=== PATIENT | female | born 1985 | race Caucasian/White ===

== ENCOUNTER 2018-10-14 13:01 | Emergency (ER) | payer BC ==
[2018-10-14] MEDS ORDERED: HYDROCODONE/APAP 5/325 MG TAB ONE (13:30)
[2018-10-14] MEDS ORDERED: KETOROLAC 30 MG/ML INJ ONE (13:30)
--- NOTE | 2018-10-14 14:14 | RAD REPORT ---
EXAM DESCRIPTION: RAD - Shoulder Right 2 View - 10/14/2018 2:08 pm CLINICAL HISTORY: Right shoulder pain FINDINGS: No fracture or dislocation is seen. No bone or joint abnormality
--- NOTE | 2018-10-14 14:39 | ER ---
Nurse's Notes [facility] Name: Vaishali Martinez Age: 33 yrs Sex: Female : 1985 Arrival Date: 10/14/2018 Time: 13:04 Bed 23 Private MD: Diagnosis: Pain in right shoulder Presentation: 10/14 13:03 Presenting complaint: Patient states: yesterday i hurt my R shoulder on one of the bottom on the counter at home, reports pain on 09/17;. Transition of care: patient was not received from another setting of care. Onset of symptoms was October 14, 2018. Risk Assessment: Do you want to hurt yourself or someone else? Patient reports no desire to harm self or others. Initial Sepsis Screen: Does the patient meet any 2 criteria? No. Patient's initial sepsis screen is negative. Does the patient have a suspected source of infection? No. Patient's initial sepsis screen is negative. Care prior to arrival: None. 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 - Ebola Screening: : Patient denies travel to an Ebola-affected area in the 21 days before illness onset. Screenin:34 Abuse screen: Denies threats or abuse. Denies injuries from another. Nutritional aj1 screening: No deficits noted. Tuberculosis screening: No symptoms or risk factors identified. 14:49 Fall Risk None identified. aj1 Assessment: 13:34 General: Appears in no apparent distress. comfortable, Behavior is calm, cooperative, aj1 appropriate for age. Pain: Complains of pain in anterior aspect of right shoulder and posterior aspect of right shoulder. Neuro: Level of Consciousness is awake, alert, obeys commands, Oriented to person, place, time, situation. Cardiovascular: Patient's skin is warm and dry. Respiratory: Airway is patent Respiratory effort is even, unlabored, Respiratory pattern is regular, symmetrical. GI: No signs and/or symptoms were reported involving the gastrointestinal system. : No signs and/or symptoms were reported regarding the genitourinary system. EENT: No signs and/or symptoms were reported regarding the EENT system. Derm: Skin is pink, warm \T\ dry. normal. Musculoskeletal: Range of motion: limited in right shoulder. 14:19 Reassessment: Patient appears in no apparent distress at this time. No changes from aj1 previously documented assessment. Patient and/or family updated on plan of care and expected duration. Pain level reassessed. Patient is alert, oriented x 3, equal unlabored respirations, skin warm/dry/pink. Vital Signs: 13:05 BP 153 / 79; Pulse 102; Resp 18; Temp 98.0(O); Pulse Ox 100% on R/A; Weight 65.77 kg; hj Height 5 ft. 8 in. (172.72 cm); Pain 7/10; 13:05 Body Mass Index 22.05 (65.77 kg, 172.72 cm) ED Course: 13:04 Patient arrived in ED. as 13:04 Triage completed. hj 13:05 Arm band placed on right wrist. hj 13:08 Kip Alcazar NP is PHCP. pm1 13:08 Yonis Rm MD is Attending Physician. pm1 13:14 Daylin Harper, RN is Primary Nurse. aj1 13:34 Patient has correct armband on for positive identification. Bed in low position. Call aj1 light in reach. 13:34 No provider procedures requiring assistance completed. aj1 14:06 Shoulder Right (2 View) XRAY In Process Unspecified. EDMS 14:48 Patient did not have IV access during this emergency room visit. aj1 14:49 Sling applied to right arm. aj1 Administered Medications: 13:33 Drug: TORadol 60 mg Route: IM; Site: left gluteus; aj1 Outcome: 14:38 Discharge ordered by MD. pm1 14:48 Discharged to home ambulatory. aj1 14:48 Condition: good 14:48 Discharge instructions given to patient, Instructed on discharge instructions, follow up and referral plans. no drinking with medication, no driving heavy equipment, medication usage, Demonstrated understanding of instructions, follow-up care, medications, Prescriptions given X 1. 14:49 Patient left the ED. aj1 Signatures: Dispatcher [employer] EDCA Daylin Harper RN RN aj Radha Cain Henry, RN RN Kip Alcazar NP MANAGER GLOBAL pm1 Corrections: (The following items were deleted from the chart) 13:07 13:05 Pulse 102bpm; Resp 18bpm; Pulse Ox 100% RA; Temp 98.0F Oral; 65.77 kg; Height 5 hj ft. 8 in.; BMI: 22.0; Pain 7/10; hj 13:32 13:32 Hollister 5 mg-325 mg 1 tabs PO aj1 aj1
--- NOTE | 2018-10-14 14:39 | EDPHYS ---
Physician Documentation [facility] Name: Vaishali Martinez Age: 33 yrs Sex: Female : 1985 Arrival Date: 10/14/2018 Time: 13:04 Bed 23 Private MD: ED Physician Yonis Rm HPI: 10/14 13:15 This 33 yrs old Female presents to ER via Ambulatory with complaints of pm1 Shoulder Pain. 13:15 The patient or guardian complains of pain. right shoulder. Context: The problem was pm1 sustained at home, resulted from hitting right shoulder against the bottom of counter yesterday and hitting right shoulder against the bottom of table today, The patient reports no obvious deformity. Patient with grinding sounds with rotation of right shoulder and pain with attempts to extend arm above the height of her shoulder. Onset: The symptoms/episode began/occurred yesterday. Modifying factors: the symptoms are alleviated by remaining still, The symptoms are aggravated by movement, rotation of arm. Associated signs and symptoms: Pertinent negatives: chest pain, Numbness in right arm shortness of breath, tingling. Severity of symptoms: in the emergency department the symptoms are unchanged. Treatment prior to arrival includes: no previous treatment. The patient has not experienced similar symptoms in the past. 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 - Ebola Screening: : Patient denies travel to an Ebola-affected area in the 21 days before illness onset. ROS: 14:29 Constitutional: Negative for fever, chills, and weight loss, Cardiovascular: Negative pm1 for chest pain, palpitations, and edema, Respiratory: Negative for shortness of breath, cough, wheezing, and pleuritic chest pain, Abdomen/GI: Negative for abdominal pain, nausea, vomiting, diarrhea, and constipation, Back: Negative for injury and pain. 14:29 Skin: Negative for injury, rash, and discoloration, Neuro: Negative for headache, weakness, numbness, tingling, and seizure. 14:29 MS/extremity: Positive for pain, of the right shoulder, Decreased ROM due to pain, Negative for deformity. Exam: 14:29 Constitutional: This is a well developed, well nourished patient who is awake, alert, pm1 and in no acute distress. Head/Face: Normocephalic, atraumatic. Neck: Trachea midline, no thyromegaly or masses palpated, and no cervical lymphadenopathy. Supple, full range of motion without nuchal rigidity, or vertebral point tenderness. No Meningismus. Chest/axilla: Normal chest wall appearance and motion. Nontender with no deformity. No lesions are appreciated. Cardiovascular: Regular rate and rhythm with a normal S1 and S2. No gallops, murmurs, or rubs. Normal PMI, no JVD. No pulse deficits. Respiratory: Lungs have equal breath sounds bilaterally, clear to auscultation and percussion. No rales, rhonchi or wheezes noted. No increased work of breathing, no retractions or nasal flaring. Abdomen/GI: Soft, non-tender, with normal bowel sounds. No distension or tympany. No guarding or rebound. No evidence of tenderness throughout. Back: No spinal tenderness. No costovertebral tenderness. Full range of motion. Skin: Warm, dry with normal turgor. Normal color with no rashes, no lesions, and no evidence of cellulitis. 14:29 Musculoskeletal/extremity: Extremities: grossly normal except: noted in the anterior aspect of right shoulder, supraspinatus insertion point tenderness: There is no evidence of deformity, Circulation is intact in all extremities. the right hand Sensation intact. 14:29 Neuro: Orientation: is normal, Motor: is normal, moves all fours, Sensation: is normal, no obvious gross deficits. Vital Signs: 13:05 BP 153 / 79; Pulse 102; Resp 18; Temp 98.0(O); Pulse Ox 100% on R/A; Weight 65.77 kg; hj Height 5 ft. 8 in. (172.72 cm); Pain 7/10; 13:05 Body Mass Index 22.05 (65.77 kg, 172.72 cm) hj MDM: 13:08 Patient medically screened. pm1 14:37 Data reviewed: vital signs. Data interpreted: Pulse oximetry: on room air is 100 %. pm1 Interpretation: normal. Counseling: I had a detailed discussion with the patient and/or guardian regarding: the historical points, exam findings, and any diagnostic results supporting the discharge/admit diagnosis, radiology results, the need for outpatient follow up, for definitive care, a orthopedic surgeon, to return to the emergency department if symptoms worsen or persist or if there are any questions or concerns that arise at home. 10/14 13:15 Order name: Shoulder Right (2 View) XRAY; Complete Time: 14:29 pm1 10/14 13:15 Order name: Sling; Complete Time: 13:32 pm1 Administered Medications: 13:33 Drug: TORadol 60 mg Route: IM; Site: left gluteus; aj1 Disposition: 10/15 07:13 Co-signature as Attending Physician, Yonis Rm MD I agree with the assessment and kira plan of care. Disposition: 10/14/18 14:38 Discharged to Home. Impression: Pain in right shoulder. - Condition is Stable. - Discharge Instructions: Shoulder Pain, How to Use a Sling. - Prescriptions for Tylenol- Codeine #3 300-30 mg Oral Tablet - take 2 tablets by ORAL route every 6 hours As needed; 20 tablet. - Medication Reconciliation Form, Thank You Letter, Antibiotic Education, Prescription Opioid Use form. - Follow up: Emergency Department; When: As needed; Reason: Worsening of condition. Follow up: Private Physician; When: 2 - 3 days; Reason: Recheck today's complaints, Continuance of care, Re-evaluation by your physician. - Problem is new. - Symptoms have improved. Signatures: Dispatcher [employer] EDDaylin Covarrubias RN RN aj1 Yonis Rm MD MD cha Joaquin, Henry, RN RN hj Marinas, Patrick, NP CONVENTIONS ASSISTANT pm1 Corrections: (The following items were deleted from the chart) 10/14 14:49 14:38 10/14/2018 14:38 Discharged to Home. Impression: Pain in right shoulder. aj1 Condition is Stable. Forms are Medication Reconciliation Form, Thank You Letter, Antibiotic Education, Prescription Opioid Use. Follow up: Emergency Department; When: As needed; Reason: Worsening of condition. Follow up: Private Physician; When: 2 - 3 days; Reason: Recheck today's complaints, Continuance of care, Re-evaluation by your physician. Problem is new. Symptoms have improved. pm1
== END 2018-10-14 14:49 | disposition home or self-care (01) ==
LOC: ER 13:01
DX: M25.511 Pain in right shoulder (principal)
CPT/HCPCS: 96372; 99284

== ENCOUNTER 2020-05-03 08:43 | Emergency (ER) | payer BC ==
--- OUTSIDE RECORDS SUMMARY | 2020-05-03 08:46 | XMS REPORT | Continuity of Care Document ---
:1985 Author Organization [facility] t Address [address] [place] [address] Care Team Providers Name Role Phone Joel Padilla DO Primary Care Physician Joel Padilla DO Attending Clinician Nikhil FRAZIER Attending Clinician Unavailable Angel MARC, L Attending Clinician Payers Payer Name Policy Type Policy Number Effective Date Expiration Date S brad [facility] [id number] 2015 [place] BENEFIT 00:00:00 [employer] [id number] 03/2015-Present PPO Problems Condition Condition Condition Status Onset Resolution Last Treating Co mments Source Name Details Category Date Date Treatment Clinician Date Attention Attention Disease Active Anthony ston or or 12-07 [facility] concentrat concentrat 00:00: st ion ion 00 deficit deficit Allergies, Adverse Reactions, Alerts Allergy Allergy Status Severity Reaction(s) Onset Inactive Treating Comm ents Source Name Type Date Date Clinician No Known DA Active U 2019-0 [facility] [place] No Known DA Active U [facility] [place] Penicill DA Active U 2010-03 [facility] ins 2-14 [facility] [place] Family History Family Member Diagnosis Comments Start Date Stop Date Source Natural mother Hypertension Fredrick Muro Paternal grandfather Leukemia [place] Muro Social History Social Habit Start Date Stop Date Quantity Comments Source Sex Assigned At [facility] ethodist Tobacco use and 2019-12-25 2019-12-25 Never used [facility] ethodist exposure 00:00:00 00:00:00 Alcohol intake 2019-12-25 2019-12-25 Current drinker Neetu britt [employer] 00:00:00 00:00:00 of alcohol (finding) Smoking Status Start Date Stop Date Source Never smoker [place] [facility] Medications Ordered Filled Start Stop Current Ordering Indication Dosage Frequency Signature Comments Components Source Medication Medication Date Date Medication? Clinician (SIG) Name Name dextroamphe 2020- Yes 20mg Q.5D Take 1 Anthony ston tamine-amph 2-19 03-21 tablet (20 M ethodi etamine 00:00: 23:59 mg total) st (AdderalL) 00 :00 by mouth 2 20 mg (two) tablet times a day for 30 days. Max Daily Amount: 40 mg dextroamphe 2020- No 20mg Q.5D Take 1 Anthony ston tamine-amph 2-18 02-19 tablet (20 M ethodi etamine 00:00: 00:00 mg total) st (AdderalL) 00 :00 by mouth 2 20 mg (two) tablet times a day for 30 days. Max Daily Amount: 40 mg dextroamphe 2020- No 20mg Q.5D Take 1 Anthony ston tamine-amph 1-15 02-14 tablet (20 M ethodi etamine 00:00: 23:59 mg total) st (AdderalL) 00 :00 by mouth 2 20 mg (two) tablet times a day for 30 days. Max Daily Amount: 40 mg dextroamphe 2019-03- No 20mg Q.5D Take 1 Anthony ston tamine-amph 2-15 01-15 tablet (20 M ethodi etamine 00:00: 00:00 mg total) st (AdderalL) 00 :00 by mouth 2 20 mg (two) tablet times a day for 30 days. Max Daily Amount: 40 mg dextroamphe 2019-03- No 20mg Q.5D Take 1 Anthony ston tamine-amph 1-16 12-15 tablet (20 M ethodi etamine 00:00: 00:00 mg total) st (AdderalL) 00 :00 by mouth 2 20 mg (two) tablet times a day for 30 days. Max Daily Amount: 40 mg dextroamphe 2019-03 20mg Q.5D Take 1 Anthony ston tamine-amph 01-24 tablet (20 M ethodi etamine 00:00: 00:00 mg total) st (AdderalL) 00 :00 by mouth 2 20 mg (two) tablet times a day for 30 days. Max Daily Amount: 40 mg Vital Signs Vital Name Observation Time Observation Value Comments Source Body temperature 2019-12-25 10:24:00 36.11 Silvia Sveta lyons [employer] Body weight 2019-12-25 10:24:00 86.637 kg [place] [employer] BMI 2019-12-25 10:24:00 29.04 kg/m2 [place] [employer] Procedures This patient has no known procedures. Plan of Care Planned Activity Planned Date Details Comments Source Future Scheduled 2019-10-10 INFLUENZA VACCINE [place] [facility] Test 00:00:00 [code = INFLUENZA VACCINE] Future Scheduled 2006 Screening for [facility] thodist Test 00:00:00 malignant neoplasm of cervix (procedure) [code = 618753103] Future Scheduled 2001 COVID-19 VACCINE (1 [place] [facility] Test 00:00:00 of 2) [code = COVID-19 VACCINE (1 of 2)] Encounters Start End Encounter Admission Attending Care Care Encounter Source Date/Time Date/Time Type Type Clinicians Facility Department ID 2019-12-25 2019-12-25 Outpatient [facility] [id number] [place] 00:00:00 00:00:00 JUAN [address] 2018-11-05 2018-11-05 Office [facility] [id number] 15:42:41 16:17:25 Visit [facility] [id number] Surgical [id number] Specialti [id number] [address] [place] Results Test Description Test Time Test Comments Results Result Comments Source HGB HCT 2019-06-09 07:28:00 Test Item Value Reference Range Interpretation Comme nts HEMOGLOBIN (test code = HGB) 10.4 g/dL 10.7-13.9 L HEMATOCRIT (test code = HCT) 31.9 % 32.1-42.1 L COMPREHENSIVE METABOLIC [id number] 12:18:00 Test Item Value Reference Range Interpretation Comments SODIUM (test code = NA) 140 mEq/L 135-145 N POTASSIUM (test code = 4.9 mEq/L 3.5-5.0 N K) CHLORIDE (test code = 107 mEq/L 100-115 N CL) CARBON DIOXIDE (test 26 mEq/L 22-31 N code = CO2) ANION GAP (test code = 12.30 10-20 N GAP) GLUCOSE (test code = 127 mg/dL 65-110 H GLU) BLOOD UREA NITROGEN 6 mg/dL 7-18 L (test code = BUN) GLOMERULAR FILTRATION 114 ml/min >60 N RATE (test code = GFR) CREATININE (test code = 0.6 mg/dL 0.5-1.0 N CREAT) TOTAL PROTEIN (test 6.2 gm/dL 6.3-8.2 L code = PROT) ALBUMIN (test code = 2.5 gm/dL 3.4-4.8 L ALB) CALCIUM (test code = 8.8 mg/dL 8.4-10.2 N CA) BILIRUBIN TOTAL (test 0.3 mg/dL 0.2-1.0 N code = BILT) SGOT/AST (test code = 24 units/L 15-37 Result s verified by AST) repeat analysis SGPT/ALT (test code = 14 units/L 12-78 N ALT) ALKALINE PHOSPHATASE 127 units/L 46-116 H TOTAL (test code = ALKP) URIC [id number] 12:18:00 Test Item Value Reference Range Interpretation Comments URIC ACID (test code = URIC) 3.5 mg/dL 2.6-6.0 N LACTIC DEHYDROGENASE(LDH)2019-06-07 12:18:00 Test Item Value Reference Range Interpretation Comments LACTIC DEHYDROGENASE(LDH) (test 411 units/L 81-234 H code = LDH) CBC W/AUTO [id number] 10:31:00 Test Item Value Reference Range Interpretation Comments WHITE BLOOD CELL (test code = WBC) 14.9 K/mm3 6.6-12.1 H RED BLOOD CELL (test code = RBC) 4.21 M/mm3 3.45-5.01 N HEMOGLOBIN (test code = HGB) 12.9 g/dL 10.7-13.9 N HEMATOCRIT (test code = HCT) 39.4 % 32.1-42.1 N MEAN CELL VOLUME (test code = MCV) 94 fL 84.1-94.8 N MEAN CELL HGB (test code = MCH) 30.6 pg 27-35 N MEAN CELL HGB CONCETRATION (test 32.7 gm/dL 32.2-34.1 N code = MCHC) RED CELL DISTRIBUTION WIDTH (test 13.9 % 12.4-16.5 N code = RDW) PLATELET COUNT (test code = PLT) 238 K/mm3 133-385 N MEAN PLATELET VOLUME (test code = 10.5 fl 9.1-12.7 N MPV) NEUTROPHIL % (test code = NT%) 79.9 % 56.5-79.4 H LYMPHOCYTE % (test code = LY%) 12.1 % 14.3-34.3 L MONOCYTE % (test code = MO%) 6.4 % 5.1-10.4 N EOSINOPHIL % (test code = EO%) 0.4 % 0.1-3.0 N BASOPHIL % (test code = BA%) 0.3 % 0.1-1.0 N NEUTROPHIL # (test code = NT#) 11.9 K/mm3 LYMPHOCYTE # (test code = LY#) 1.8 K/mm3 MONOCYTE # (test code = MO#) 1.0 K/mm3 EOSINOPHIL # (test code = EO#) 0.06 K/mm3 BASOPHIL # (test code = BA#) 0.1 K/mm3 RBC MORPHOLOGY REQUIRED (test code NORMAL NORMAL = RBCM) PLATELET MORPHOLOGY REQUIRED (test NORMAL NORMAL code = PLTMR) AG HEPATITIS B [id number] 19:34:00 Test Item Value Reference Range Interpretation Comments AG HEPATITIS B SURFACE (test code NONREACTIVE NONREACTIVE = HBSAG) IS CONSENT FORM SIGNED FOR HIV TESTING? YAB HEPATITIS C [id number] 19:34:00 Test Item Value Reference Range Interpretation Comments AB HEPATITIS C (test code = NONREACTIVE NONREACTIVE HCVAB) SIGNAL TO CUTOFF (test code = 0.22 <0.80 N CUTOFF) IS CONSENT FORM SIGNED FOR HIV TESTING? YAB [id number] 19:34:00 Test Item Value Reference Range Interpretation Comments AB TREPONEMA (test code = TREPAB) NONREACTIVE NONREACTIVE IS CONSENT FORM SIGNED FOR HIV TESTING? YAB HIV 1 19:34:00 Test Item Value Reference Range Interpretation Comments AB HIV 1 2 (test NONREACTIVE NONREACTIVE Done by Enzo Markham code = [id number]) 4th Gen HIV Ag/Ab Combo Screen IS CONSENT FORM SIGNED FOR HIV TESTING? YAG HEPATITIS B [id number] 19:11:00 Test Item Value Reference Range Interpretation Comments AG HEPATITIS B SURFACE (test code NONREACTIVE NONREACTIVE = HBSAG) IS CONSENT FORM SIGNED FOR HIV TESTING? YAB HEPATITIS C [id number] 19:11:00 Test Item Value Reference Range Interpretation Comments AB HEPATITIS C (test code = HCVAB) NONREACTIVE SIGNAL TO CUTOFF (test code = CUTOFF) <0.80 IS CONSENT FORM SIGNED FOR HIV TESTING? YAB [id number] 19:11:00 Test Item Value Reference Range Interpretation Comments AB TREPONEMA (test code = TREPAB) NONREACTIVE NONREACTIVE IS CONSENT FORM SIGNED FOR HIV TESTING? YAB HIV 1 19:11:00 Test Item Value Reference Range Interpretation Comments AB HIV 1 2 (test code = [id number]) NONREACTIVE IS CONSENT FORM SIGNED FOR HIV TESTING? [id number] 14:47:00 Test Item Value Reference Range Interpretation Comments CREATININE (test code = CREAT) 0.7 mg/dL 0.5-1.0 N [id number] 14:47:00 Test Item Value Reference Range Interpretation Comments SGOT/AST (test code = AST) 14 units/L 15-37 L [id number] 14:47:00 Test Item Value Reference Range Interpretation Comments SGPT/ALT (test code = ALT) 19 units/L 12-78 N CBC W/AUTO [id number] 14:16:00 Test Item Value Reference Range Interpretation Comments WHITE BLOOD CELL (test code = WBC) 14.1 K/mm3 6.6-12.1 H RED BLOOD CELL (test code = RBC) 4.27 M/mm3 3.45-5.01 N HEMOGLOBIN (test code = HGB) 13.2 g/dL 10.7-13.9 N HEMATOCRIT (test code = HCT) 39.6 % 32.1-42.1 N MEAN CELL VOLUME (test code = MCV) 93 fL 84.1-94.8 N MEAN CELL HGB (test code = MCH) 30.9 pg 27-35 N MEAN CELL HGB CONCETRATION (test 33.3 gm/dL 32.2-34.1 N code = MCHC) RED CELL DISTRIBUTION WIDTH (test 13.8 % 12.4-16.5 N code = RDW) PLATELET COUNT (test code = PLT) 244 K/mm3 133-385 N MEAN PLATELET VOLUME (test code = 11.1 fl 9.1-12.7 N MPV) NEUTROPHIL % (test code = NT%) 78.8 % 56.5-79.4 N LYMPHOCYTE % (test code = LY%) 11.9 % 14.3-34.3 L MONOCYTE % (test code = MO%) 7.4 % 5.1-10.4 N EOSINOPHIL % (test code = EO%) 0.5 % 0.1-3.0 N BASOPHIL % (test code = BA%) 0.4 % 0.1-1.0 N NEUTROPHIL # (test code = NT#) 11.1 K/mm3 LYMPHOCYTE # (test code = LY#) 1.7 K/mm3 MONOCYTE # (test code = MO#) 1.1 K/mm3 EOSINOPHIL # (test code = EO#) 0.07 K/mm3 BASOPHIL # (test code = BA#) 0.1 K/mm3 RBC MORPHOLOGY REQUIRED (test code NORMAL NORMAL = RBCM) PLATELET MORPHOLOGY REQUIRED (test NORMAL NORMAL code = PLTMR)
--- OUTSIDE RECORDS SUMMARY | 2020-05-03 08:46 | XMS REPORT | Clinical Summary ---
:1985 Author Organization [facility] Address [address] [place] [address] Care Team Providers Name Role Phone Roxy Padilla DO Primary Care Provider Allergies No Known Active Allergies Medications Medication Sig Dispensed Refills Start Date End Date Status dextroamphetamin Take 1 60 tablet 0 04/29/2020 05/29/2020 A ctive e-amphetamine tablet (20 (AdderalL) 20 mg mg total) by tablet mouth 2 (two) times a day for 30 days. Max Daily Amount: 40 mg dextroamphetamin Take 1 60 tablet 0 12/25/2019 2020 D iscontinued e-amphetamine tablet (20 (Reor justyna) (AdderalL) 20 mg mg total) by tablet mouth 2 (two) times a day for 30 days. Max Daily Amount: 40 mg dextroamphetamin Take 1 60 tablet 0 2020 02/23/2020 D iscontinued e-amphetamine tablet (20 (Reor justyna) (AdderalL) 20 mg mg total) by tablet mouth 2 (two) times a day for 30 days. Max Daily Amount: 40 mg dextroamphetamin Take 1 60 tablet 0 02/23/2020 03/25/2020 D iscontinued e-amphetamine tablet (20 (Reor justyna) (AdderalL) 20 mg mg total) by tablet mouth 2 (two) times a day for 30 days. Max Daily Amount: 40 mg dextroamphetamin Take 1 60 tablet 0 03/25/2020 04/24/2020 E xpired e-amphetamine tablet (20 (AdderalL) 20 mg mg total) by tablet mouth 2 (two) times a day for 30 days. Max Daily Amount: 40 mg dextroamphetamin Take 1 60 tablet 0 04/28/2020 04/29/2020 D iscontinued e-amphetamine tablet (20 (Reor justyna) (AdderalL) 20 mg mg total) by tablet mouth 2 (two) times a day for 30 days. Max Daily Amount: 40 mg Active Problems Problem Noted Date Attention or concentration deficit 12/08/2015 Encounters Date Type Specialty Care Team Description 04/29/2020 Orders Only Family Medicine Roxy Padilla, DO 04/28/2020 Telephone Family Medicine Suzi Tejeda MA 04/28/2020 Orders Only Family Medicine Roxy Padilla, DO 03/25/2020 Orders Only Family Medicine Roxy Padilla, DO 02/23/2020 Orders Only Family Medicine Roxy Padilla, DO 2020 Orders Only Family Medicine Roxy Padilla, DO 01/21/2020 Refill Family Medicine Roxy Padilla, DO 12/25/2019 Telemedicine Family Medicine Roxy Padilla Attention deficit disorder E., DO (ADD) without h yperactivity (Primary Dx) 12/24/2019 Travel after 05/03/2019 Surgical History Surgery Date Site/Laterality Comments TONSILLECTOMY Medical History Medical History Date Comments ADHD (attention deficit hyperactivity disorder) Family History Medical History Relation Name Comments Hypertension Mother Leukemia Paternal Grandfather Relation Name Status Comments Mother Paternal Grandfather Social History Tobacco Use Types Packs/Day Years Used Date Never Smoker Smokeless Tobacco: Never Used Alcohol Use Drinks/Week oz/Week Comments Yes Sex Assigned at Date Recorded Not on file Last Filed Vital Signs Vital Sign Reading Time Taken Comments Blood Pressure - - Pulse - - Temperature 36.1 C (97 F) 12/25/2019 10:24 AM CDT Respiratory Rate - - Oxygen Saturation - - Inhaled Oxygen Concentration - - Weight 86.6 kg (191 lb) 12/25/2019 10:24 AM CDT Height - - Body Mass Index 29.04 10/24/2017 11:31 AM CDT Plan of Treatment Health Maintenance Due Date Last Done Comments COVID-19 VACCINE (1 of 2) 2001 CERVICAL CANCER SCREENING 2006 INFLUENZA VACCINE 10/10/2019 HEPATITIS C SCREENING Completed 09/21/2015 Results Not on fileafter 05/03/2019
[2020-05-03] MEDS ORDERED: predniSONE 20 MG TAB ONE (09:36)
[2020-05-03] MEDS ORDERED: KETOROLAC 30 MG/ML INJ ONE (09:38)
[2020-05-03] MEDS ORDERED: DIAZEPAM 5 MG TABLET ONE (09:38)
--- NOTE | 2020-05-03 09:41 | RAD REPORT ---
EXAM DESCRIPTION: CTSpine Lumbar Wo Con05/03/2020 9:29 am CLINICAL HISTORY: Leg radiculopathy COMPARISON: None TECHNIQUE: Computed axial tomography lumbar spine was obtained with coronal and sagittal reconstruct ion. All CT scans are performed using dose optimization technique as appropriate and may include automated exposure control or mA/KV adjustment according to patient size. FINDINGS: No fracture is seen. No dislocation is noted. Small left posterior-lateral disc herniation suspected L4-5 No high-grade stenosis visualized IMPRESSION: Small left posterolateral disc herniation suspected L4-5. Nonemergent MRI recommended
--- NOTE | 2020-05-03 10:43 | ER ---
Nurse's Notes [facility] Name: Vaishali Martinez Age: 35 yrs Sex: Female : 1985 Arrival Date: 05/03/2020 Time: 08:45 Bed 16 Private MD: Diagnosis: Low back pain-herniated disc Presentation: 05/03 08:59 Chief complaint: Patient states: Low back pain that radiates down both legs that began ss 1-2 days ago. No known injury. Coronavirus screen: Client denies travel out of the [place] in the last 14 days. Ebola Screen: Patient denies exposure to infectious person. Patient denies travel to an Ebola-affected area in the 21 days before illness onset. Initial Sepsis Screen: Does the patient meet any 2 criteria? HR > 90 bpm. Does the patient have a suspected source of infection? No. Patient's initial sepsis screen is negative. Risk Assessment: Do you want to hurt yourself or someone else? Patient reports no desire to harm self or others. Onset of symptoms was May 02, 2020. 08:59 Method Of Arrival: Ambulatory ss 08:59 Acuity: MADHAV 3 ss Historical: - Allergies: 09:02 No Known Allergies; ss - Home Meds: 09:02 Adderall XR 20 mg Oral cp24 twice a day [Active]; ss - PMHx: 09:02 ADD/ADHD; ss - PSHx: 09:02 Tonsillectomy; ss - Immunization history:: Adult Immunizations up to date, Flu vaccine is not up to date. - Social history:: Smoking status: Patient denies any tobacco usage or history of. Screenin:29 Abuse screen: Denies threats or abuse. Denies injuries from another. Nutritional dm14 screening: No deficits noted. Tuberculosis screening: No symptoms or risk factors identified. Fall Risk None identified. Assessment: 10:29 General: Appears distressed, uncomfortable, well groomed, Behavior is calm, dm14 cooperative, appropriate for age. Pain: Complains of pain in low back area States has a numb tingling feeling down the back of her right leg down to the foot. not painful. Pain at worst was 10 out of 10 on a pain scale. Quality of pain is described as shooting. Neuro: Reports numbness in right leg. Cardiovascular: No deficits noted. Respiratory: No deficits noted. GI: No deficits noted. Musculoskeletal: Reports weakness in right leg numbness in right leg. 11:06 Reassessment: Pt appears very uncomfortable when trying to sit up in the bed. michael Tang [employer] notified. Additional medications ordered and administered. Pt is awaiting for her ride home. 11:09 Reassessment: Pt reports she has some relief from medications given. Verbalizes ss understanding importance of following up with PCP and has already been in touch with them. 11:16 Neuro:. dm14 Vital Signs: 08:59 BP 141 / 97; Pulse 96; Resp 17; Temp 98.6(TE); Pulse Ox 99% on R/A; Weight 89.81 kg; ss Height 5 ft. 8 in. (172.72 cm); Pain 8/10; 10:29 BP 133 / 97; Pulse 83; Resp 16; Pulse Ox 99% ; dm14 08:59 Body Mass Index 30.11 (89.81 kg, 172.72 cm) ED Course: 08:45 Patient arrived in ED. ds1 09:01 Triage completed. ss 09:02 Arm band placed on left wrist. ss 09:04 Mirela Hickey, RN is Primary Nurse. dm14 09:06 Kitty Baldwin FNP-C is [facility]. kb 09:06 Yonis Rm MD is Attending Physician. kb 09:29 CT Lumbar Spine Wo Con In Process Unspecified. EDMS 10:29 Patient has correct armband on for positive identification. Bed in low position. Call dm14 light in reach. Side rails up X2. 10:29 No provider procedures requiring assistance completed. dm14 11:09 Patient did not have IV access during this emergency room visit. ss Administered Medications: 10:07 Drug: TORadol 60 mg Route: IM; Site: left ventrogluteal; dm14 11:05 Follow up: Response: No adverse reaction; No change in condition ss 10:07 Drug: predniSONE 60 mg Route: PO; dm14 11:05 Follow up: Response: No adverse reaction; No change in condition ss 10:18 Drug: Valium 5 mg Route: PO; dm14 11:05 Follow up: Response: No adverse reaction; No change in condition ss 11:04 Drug: [place] (7.5 mg-325 mg) 1 tabs Route: PO; ss 11:10 Follow up: Response: Medication administered at discharge. ss 11:05 Drug: Lidoderm 5 % (700 mg/patch) 1 patches Route: Topical; Site: affected area; ss 11:10 Follow up: Response: Medication administered at discharge. Outcome: 10:43 Discharge ordered by . kb 11:09 Discharge instructions given to patient, Instructed on discharge instructions, follow ss up and referral plans. Demonstrated understanding of instructions, follow-up care, medications, Prescriptions given X 3. 11:29 Discharged to home via wheelchair, with family. ss 11:29 Condition: good 11:29 Patient left the ED. ss Signatures: Dispatcher [employer] EDMS Kitty Baldwin, LAURE RUIZP-Ibeth Canales ds1 Sara Moses RN RN Mirela Hickey RN RN dm14
--- NOTE | 2020-05-03 10:44 | EDPHYS ---
Physician Documentation [facility] Name: Vaishali Martinez Age: 35 yrs Sex: Female : 1985 Arrival Date: 05/03/2020 Time: 08:45 Bed 16 Private MD: TATUM Physician Yonis Rm HPI: 05/03 09:21 This 35 yrs old Female presents to ER via Ambulatory with complaints of Back kb Pain. 09:21 The patient presents with pain that is acute, with no known mechanism of injury. The kb symptoms are located in the lumbar spine. Onset: The symptoms/episode began/occurred yesterday. The pain radiates to the right hamstring and left hamstring. Associated signs and symptoms: Pertinent positives: none Pertinent negatives: abdominal pain, incontinence, numbness, tingling, urinary retention, weakness. The problem was sustained from unknown cause. Modifying factors: The patient symptoms are alleviated by nothing, the patient symptoms are aggravated by any movement, sitting. Severity of symptoms: At their worst the symptoms were severe, in the emergency department the symptoms are unchanged. The patient has not experienced similar symptoms in the past. The patient has not recently seen a physician. Pt reports she started to have an ache in her low back yesterday afternoon. States the pain progressed throughout the day and was much worse this morning. States pain is worse when she sits and when she was in her car the pain radiated down the back of her legs. Denies any incontinence. States she has been urinating normally. Denies numbness or tingling. Denies injury or trauma. Pt did receive her second dose of COVID vaccine 2 days ago. . Historical: - Allergies: 09:02 No Known Allergies; ss - Home Meds: 09:02 Adderall XR 20 mg Oral cp24 twice a day [Active]; ss - PMHx: 09:02 ADD/ADHD; ss - PSHx: 09:02 Tonsillectomy; ss - Immunization history:: Adult Immunizations up to date, Flu vaccine is not up to date. - Social history:: Smoking status: Patient denies any tobacco usage or history of. ROS: 09:15 Constitutional: Negative for fever, chills, and weight loss, Cardiovascular: Negative kb for chest pain, palpitations, and edema, Respiratory: Negative for shortness of breath, cough, wheezing, and pleuritic chest pain, Abdomen/GI: Negative for abdominal pain, nausea, vomiting, diarrhea, and constipation, MS/Extremity: Negative for injury and deformity, Skin: Negative for injury, rash, and discoloration, Neuro: Negative for headache, weakness, numbness, tingling, and seizure. 09:15 Back: Positive for pain at rest, pain with movement, radiated pain, of the lumbar area. Exam: 09:15 Constitutional: This is a well developed, well nourished patient who is awake, alert, kb and in no acute distress. Head/Face: Normocephalic, atraumatic. Cardiovascular: Regular rate and rhythm with a normal S1 and S2. No gallops, murmurs, or rubs. Normal PMI, no JVD. No pulse deficits. Respiratory: Lungs have equal breath sounds bilaterally, clear to auscultation and percussion. No rales, rhonchi or wheezes noted. No increased work of breathing, no retractions or nasal flaring. Abdomen/GI: Soft, non-tender, with normal bowel sounds. No distension or tympany. No guarding or rebound. No evidence of tenderness throughout. Skin: Warm, dry with normal turgor. Normal color with no rashes, no lesions, and no evidence of cellulitis. MS/ Extremity: Pulses equal, no cyanosis. Neurovascular intact. Full, normal range of motion. 09:15 Neuro: Orientation: is normal, to person, place, time \T\ situation. Mentation: is normal, able to follow commands, Motor: is normal, moves all fours, Sensation: is normal, Gait: is steady, without difficulty. Vital Signs: 08:59 BP 141 / 97; Pulse 96; Resp 17; Temp 98.6(TE); Pulse Ox 99% on R/A; Weight 89.81 kg; ss Height 5 ft. 8 in. (172.72 cm); Pain 8/10; 10:29 BP 133 / 97; Pulse 83; Resp 16; Pulse Ox 99% ; dm14 08:59 Body Mass Index 30.11 (89.81 kg, 172.72 cm) ss MDM: 09:06 Patient medically screened. kb 09:21 Data reviewed: vital signs, nurses notes. Data interpreted: Pulse oximetry: on room air kb is 99 %. Interpretation: normal. 10:42 Counseling: I had a detailed discussion with the patient and/or guardian regarding: the kb historical points, exam findings, and any diagnostic results supporting the discharge/admit diagnosis, radiology results, the need for outpatient follow up, a family practitioner, to return to the emergency department if symptoms worsen or persist or if there are any questions or concerns that arise at home. ED course: Pt reports pain is much better after treatment. Pt will get in touch with PCP about ordering nonemergent MRI. . 05/03 09:15 Order name: CT Lumbar Spine Wo Con; Complete Time: 09:41 kb Administered Medications: 10:07 Drug: TORadol 60 mg Route: IM; Site: left ventrogluteal; dm14 11:05 Follow up: Response: No adverse reaction; No change in condition ss 10:07 Drug: predniSONE 60 mg Route: PO; dm14 11:05 Follow up: Response: No adverse reaction; No change in condition ss 10:18 Drug: Valium 5 mg Route: PO; dm14 11:05 Follow up: Response: No adverse reaction; No change in condition ss 11:04 Drug: [place] (7.5 mg-325 mg) 1 tabs Route: PO; ss 11:10 Follow up: Response: Medication administered at discharge. ss 11:05 Drug: Lidoderm 5 % (700 mg/patch) 1 patches Route: Topical; Site: affected area; ss 11:10 Follow up: Response: Medication administered at discharge. Disposition: 16:55 Co-signature as Attending Physician, Yonis Rm MD I agree with the assessment and kira plan of care. Disposition: 05/03/20 10:43 Discharged to Home. Impression: Low back pain - herniated disc. - Condition is Stable. - Discharge Instructions: Back Pain, Adult, [id number], Herniated Disk, [id number]. - Prescriptions for Prednisone 20 mg Oral Tablet - take 1 tablet by ORAL route once daily for 5 days; 5 tablet. Cyclobenzaprine 10 mg Oral Tablet - take 1 tablet by ORAL route every 8 hours As needed; 21 tablet. Tramadol 50 mg Oral Tablet - take 1 tablet by ORAL route every 8 hours as needed; 12 tablet. - Medication Reconciliation Form, Thank You Letter, Antibiotic Education, Prescription Opioid Use, Work release form form. - Follow up: Emergency Department; When: As needed; Reason: Worsening of condition. Follow up: Private Physician; When: 2 - 3 days; Reason: Recheck today's complaints, Continuance of care, Re-evaluation by your physician. Signatures: Dispatcher [employer] Kitty Garcia, LAURE CRUZ-Yonis Peralta MD MD cha Smirch, Shelby, ANA RN ss Mirela Hickey RN RN dm14 Corrections: (The following items were deleted from the chart) 11:29 10:43 05/03/2020 10:43 Discharged to Home. Impression: Low back pain - herniated disc. ss Condition is Stable. Forms are Medication Reconciliation Form, Thank You Letter, Antibiotic Education, Prescription Opioid Use. Follow up: Emergency Department; When: As needed; Reason: Worsening of condition. Follow up: Private Physician; When: 2 - 3 days; Reason: Recheck today's complaints, Continuance of care, Re-evaluation by your physician. kb
[2020-05-03] MEDS ORDERED: HYDROCODONE/APAP 7.5/325 MG TAB ONE (11:08)
[2020-05-03] MEDS ORDERED: LIDOCAINE 4% PATCH ONE (11:12)
[2020-05-03 11:35] VITALS: TEMP 98.6; O2SAT 99
[2020-05-03 11:36] VITALS: BP 133/97
== END 2020-05-03 11:29 | disposition home or self-care (01) ==
LOC: ER 08:43
DX: M51.26 Other intervertebral disc displacement, lumbar region (principal); F90.9 Attention-deficit hyperactivity disorder, unspecified type
CPT/HCPCS: 72131; 96372; 99283; J7512